=== PATIENT | male | born 1950 | race Caucasian/White ===

== ENCOUNTER 2023-06-02 05:50 | Day surgery (SDC) | payer MEDICARE, OTHER ==
[~2023-06-02 05:50] MED LIST: Lactated Ringers 1,000 ML IV SCH; Morphine 8 MG, EPINEPHrine 0.3 MG, Cefuroxime 750 MG, Ketorolac 30 MG, Sodium Chloride ... PRN; Sodium Chloride 0.9% 10 ML Syringe FLUSH PRN; Sodium Chloride 0.9% 10 ML Syringe FLUSH SCH
[2023-06-02] MEDS ORDERED: Acetaminophen 325 MG Tab PO SCH (06:00)
[2023-06-02] MEDS ORDERED: oxyCODONE ER 10 MG TAB.ER PO SCH (06:00)
[2023-06-02] MEDS ORDERED: Pregabalin 25 MG Cap PO SCH (06:00)
[2023-06-02] MEDS ORDERED: Morphine 8 MG, EPINEPHrine 0.3 MG, Cefuroxime 750 MG, Ketorolac 30 MG, Sodium Chloride ... PRN ×5 (06:00)
[2023-06-02] MEDS ORDERED: Vancomycin 1 GM SDV ONE (06:24)
[2023-06-02] MEDS ORDERED: Tranexamic Acid 1,000 MG/10 ML Vial ONE (06:24)
[2023-06-02] MEDS ORDERED: Bupivacaine 0.25% 10 ML SDV ONE (06:44)
[2023-06-02] MEDS ORDERED: Triamcinolone Acetonide 40 MG/ML 1 ML SDV ONE (06:44)
[2023-06-02] MEDS ORDERED: Lactated Ringers 1,000 ML IV SCH (06:45)
[2023-06-02] MEDS ORDERED: Lidocaine 1% 5 ML VIAL ONE (06:47)
[2023-06-02] MEDS ORDERED: fentaNYL 100 MCG/2 ML SDV ONE (06:47)
[2023-06-02] MEDS ORDERED: Propofol 200 MG/20 ML SDV ONE (06:48)
[2023-06-02] MEDS ORDERED: Midazolam 1 MG/ML 2 ML SDV ONE (06:48)
[2023-06-02] MEDS ORDERED: Ondansetron 4 MG/2 ML SDV ONE (06:50)
[2023-06-02] MEDS ORDERED: ceFAZolin 2 GM Vial ONE (06:50)
[2023-06-02] MEDS ORDERED: EPINEPHrine 1 MG/ML SDV ONE (06:55)
[2023-06-02] MEDS ORDERED: Ropivacaine 0.5% 5 MG/ML 30 ML SDV ONE (06:55)
[2023-06-02] MEDS ORDERED: Dexamethasone 4 MG/ML 5 ML MDV ONE (06:56)
[2023-06-02] MEDS ORDERED: dexmedeTOMIDine HCl 200 MCG/2 ML SDV ONE (06:57)
[2023-06-02] MEDS ORDERED: ePHEDrine 50 MG/ML SDV ONE (07:23)
[2023-06-02] MEDS ORDERED: Ondansetron 4 MG/2 ML SDV IVPUSH PRN (07:37)
[2023-06-02] MEDS ORDERED: fentaNYL 100 MCG/2 ML SDV IVPUSH PRN (07:37)
[2023-06-02] MEDS ORDERED: HYDROmorphone 0.5 MG/0.5 ML Syringe IVPUSH PRN (07:37)
[2023-06-02] MEDS ORDERED: Phenylephrine 1% 10 MG/ML SDV ONE (07:48)
[2023-06-02] MEDS ORDERED: Lactated Ringers 1,000 ML ONE ×2 (07:52→08:09)
[2023-06-02] MEDS ORDERED: Cyclobenzaprine 10 MG Tab PO PRN (09:51)
[2023-06-02] MEDS ORDERED: oxyCODONE 5 MG Tab PO PRN (09:51)
== END 2023-06-02 12:30 | disposition home or self-care (01) ==
LOC: JD.SDS 05:50
PROVIDERS: ATTEND Orthopaedic Surgery
DX: M17.0 Bilateral primary osteoarthritis of knee (principal); I49.1 Atrial premature depolarization; E78.00 Pure hypercholesterolemia, unspecified; Z79.82 Long term (current) use of aspirin; Z79.899 Other long term (current) drug therapy
CPT/HCPCS: 0055T; 27447; 64447; 73560; 97110; 97116; 97161; A9270; C1713; C1776; J0171; J0690; J0697; J1100; J1885; J2250; J2270; J2371; J2405; J2704; J2795; J3010; J3301; J3370; J3490; J7030; J7120; 01402; 99211

== ENCOUNTER → 2025-04-30 | Day surgery (SDC) | payer MEDICARE, OTHER ==
[~2025-04-30] MED LIST changes: -Lactated Ringers 1,000 ML IV SCH; -Morphine 8 MG, EPINEPHrine 0.3 MG, Cefuroxime 750 MG, Ketorolac 30 MG, Sodium Chloride ... PRN; +Ondansetron 4 MG/2 ML SDV IVPUSH PRN; +Phenylephrine 1% 10 MG/ML SDV ONE; +ePHEDrine 50 MG/ML SDV ONE; +fentaNYL 100 MCG/2 ML SDV IVPUSH PRN; +fentaNYL 100 MCG/2 ML SDV ONE; +propofoL 500 MG/50 ML 50 ML ONE
[2025-04-30] MEDS: Lactated Ringers 1,000 ML IV SCH (07:15)
[2025-04-30] MEDS: oxyCODONE ER 10 MG TAB.ER PO SCH (07:20)
[2025-04-30] MEDS: Morphine 8 MG, EPINEPHrine 0.3 MG, Cefuroxime 750 MG, Ketorolac 30 MG, Sodium Chloride ... PRN (09:00)
== END | disposition home or self-care (01) ==
LOC: JD.SDS 06:45
PROVIDERS: ATTEND Orthopaedic Surgery
DX: M16.7 Other unilateral secondary osteoarthritis of hip (principal); M19.09 Primary osteoarthritis, other specified site; I10 Essential (primary) hypertension; E78.5 Hyperlipidemia, unspecified; Z79.899 Other long term (current) drug therapy
CPT/HCPCS: 0055T; 27130; 73501; 97116; 97161; A9270; C1713; C1776; J0169; J0697; J1885; J2272; J2371; J2704; J3010; J3373; J7120; 01214; 99100; J3490